=== PATIENT | male | born 2000 | race Caucasian/White ===

== ENCOUNTER 2021-12-17 16:50 | Emergency (ER) | payer MEDICAID | END 2021-12-17 20:40 | disposition home or self-care (01) | LOC: JD.ED 16:50 | DX: U07.1 COVID-19 (principal); Z88.0 Allergy status to penicillin; Z79.899 Other long term (current) drug therapy; Z90.49 Acquired absence of other specified parts of digestive tract; Z86.16 Personal history of COVID-19 | CPT/HCPCS: 71045; 71045-26; 99284 ==

== ENCOUNTER 2022-12-06 19:29 | Emergency (ER) | payer MEDICAID, OTHER ==
[2022-12-06] MEDS ORDERED: Famotidine 20 MG Tab PO ONE (19:59)
== END 2022-12-06 21:55 | disposition home or self-care (01) ==
LOC: JD.ED 19:29
DX: T78.40XA Allergy, unspecified, initial encounter (principal); J45.909 Unspecified asthma, uncomplicated; Z88.0 Allergy status to penicillin; Z91.018 Allergy to other foods; Z91.09 Other allergy status, other than to drugs and biological substances; X58.XXXA Exposure to other specified factors, initial encounter
CPT/HCPCS: 99283; A9270